=== PATIENT | female | born 1950 | race Caucasian/White ===

== ENCOUNTER 2016-12-22 14:26 | Emergency (ER) | payer MEDICAID ==
[2016-12-22] MEDS ORDERED: ONDANSETRON 4 MG/2 ML VIAL IVP ONE (14:47)
[2016-12-22] MEDS ORDERED: NS 500 ML IV ONE (14:47)
[2016-12-22] MEDS ORDERED: MECLIZINE HCL 25 MG TAB ONE (14:48)
[2016-12-22] MEDS ORDERED: IOPAMIDOL (ISOVUE 370) 100 ML BTL IV ONE (14:53)
--- NOTE | 2016-12-22 14:57 | EDPHY ---
H & P Time Seen by Provider: 12/22/16 14:36 HPI/ROS: HPI Headache, dizziness. 66-year-old female by private vehicle with her grandson. This patient reports that she developed dizziness which she describes as the room spinning onset about 3 hours prior to arrival. Symptoms worse with head movement. She also describes having a dull suboccipital/occipital headache. She describes this as gradual in in onset. She describes it as dull and mild to moderate at this time. She has had difficulty with balance secondary to her dizziness. She denies any focal weakness or loss of sensation in her extremities. She reports some intermittent blurry vision. She has a prior history of a brain malignancy with surgery which was performed at [facility] in [place]. ROS: Constitutional: No fever, no chills. As above. Eyes: No discharge. Above. ENT: No sore throat. No nasal congestion or rhinorrhea. Respiratory: No cough. No shortness of breath. Cardiac: No chest pain, no palpitations. Gastrointestinal: No abdominal pain, no vomiting, no diarrhea. Genitourinary: No hematuria. No dysuria or increased frequency with urination. Musculoskeletal: No back pain. No neck pain. No myalgias or arthralgias. Skin: No rashes. Neurological: As above. No focal weakness or altered sensation. Past medical history: Type 2 diabetes, hyperlipidemia, hypothyroidism, brain tumor with surgeries, thyroidectomy, left knee replacement. Social history: From [facility]. Does not speak Romansh. Denies smoking. No alcohol. Here with her grandson. Currently lives with family. Ambulates without a cane. Physical Exam: General Appearance: Alert, no distress. This patient is responding to questions appropriately and in full sentences. This patient appears well- hydrated and well-nourished. Eyes: Pupils equal and round no pallor or injection. No lid edema, erythema or injection. No nystagmus. No photophobia. Mild catch-up saccades on head impulse testing. Respiratory: There are no retractions, lungs are clear to auscultation with good air movement bilaterally. Cardiovascular: Regular rate and rhythm. No murmur. Gastrointestinal: Abdomen is soft and nontender, no masses, bowel sounds normal. No focal tenderness at McBurney's point. No Penn sign. Neurological: Motor sensory function is grossly intact. Cranial nerves are normal. Gait is baseline according to her son who witnessed her ambulate in the emergency department. Skin: Warm and dry, no rashes. Musculoskeletal: Neck is supple and nontender. No suboccipital tenderness on palpation. No tenderness over the lateral soft tissues of the neck. No pain on flexion of the neck. Extremities are symmetrical. All joints range without pain or impingement. Psychiatric: No agitation. No depression. Database: EKG: EKG time is 3:22 p.m.; EKG shows a narrow complex normal sinus rhythm with a ventricular rate of 79. The ID, QRS, QT intervals are within normal limits. There are no ST-T wave changes indicative of ischemic or injury pattern. No evidence of right heart strain. Interpreted by me. Imaging: CT angiogram of head and neck: Encephalomalacia noted from previous surgical procedure. No hemorrhage. No evidence of vertebral artery or carotid artery dissection. No significant acute findings. Results were discussed with staff radiologist. Procedures: Emergency department course: IV placed. Vital signs reviewed. She was placed on a monitoring coordinator. She was started on IV normal saline with 500 cc to be given over the next hour. She will be given 25 mg of oral meclizine. Given her history of intracranial mass as well as symptoms today we will obtain CT angiogram of her head neck. 3:25 p.m., patient re-evaluated. Repeat neurologic Assessment is nonfocal and as above. Her presentation, physical exam findings and emergency department workup are reassuring for a peripheral etiology of vertigo. Results of laboratory work, EKG and CT angiograms of the head neck discussed with her and her son. She is feeling better now in the emergency department. She is up and ambulatory with her baseline gait and without assistance. She and her grandson feel comfortable being discharged. I discussed follow-up with her primary care physician Dr. Anisha Corrales with the [facility]. She feels comfortable going home. Return to emergency department precautions were reviewed in detail. All of her questions were answered. She was discharged in good condition. Differential Diagnosis: The differential diagnosis on this patient includes but is not limited to benign positional vertigo, acute labyrinthitis. Carotid artery dissection, vertebral artery dissection, CVA, new or changing intracranial mass unlikely. This represents a partial list of diagnoses considered. These considerations are based on history, physical exam, past history, reassessment and diagnostic testing. Smoking Status: Never smoked Constitutional: Initial Vital Signs Temperature (C) 36.5 C 12/22/16 14:28 Heart Rate 90 12/22/16 14:28 Respiratory Rate 20 12/22/16 14:28 Blood Pressure 133/105 H 12/22/16 14:28 O2 Sat (%) 91 L 12/22/16 14:28 O2 Delivery Mode Room Air Allergies/Adverse Reactions: No Known Allergies Allergy (Verified 03/26/16 13:44) Home Medications: Medication Instructions Recorded Levothyroxine [Synthroid 150 mcg 150 mcg PO DAILY06 07/22/11 (RX)] Lisinopril [Zestril 10 mg (RX)] 10 mg PO DAILY PRN 07/22/11 Simvastatin [Zocor 20 mg (RX)] 20 mg PO DAILY18 12/14/11 metFORMIN HCL [Glucophage 500 mg 1,000 mg PO BIDMEAL 12/14/11 (RX)] Dm/P-Ephed/Acetaminoph/Doxylam 15 - 30 ml PO Q6 PRN 03/02/13 [Nyquil D Cold & Flu Liquid] Ibuprofen [Motrin 200 mg (OTC)] 400 mg PO Q6 PRN 03/02/13 Insulin Aspart [Novolog] 40 unit SC DAILY@18 03/02/13 Insulin Aspart [Novolog] 60 unit SC DAILY@03/02/13 Pantoprazole Sodium [Protonix 40mg 40 mg PO DAILY PRN 03/02/13 (RX)] clonazePAM [Klonopin (RX)] 1 mg PO HS 03/02/13 Cephalexin [Keflex] 500 mg PO TID #15 cap 03/26/16 Ondansetron Odt [Zofran Odt] 4 mg PO Q4PRN PRN #20 tab 03/26/16 Meclizine HCl [Antivert] 25 mg PO QID PRN #14 tablet 12/22/16 Medical Decision Making - Diagnostics Imaging Results: Imaging Impressions Head CTA 12/22/16 14:48 Impression: 1. Normal CT angiogram of the neck. There is some tortuosity of the proximal to mid ICA bilaterally. 2. Normal CT angiogram of the [place], as detailed above. Normal variation around the [place]. 3. Previous craniotomy on the right with underlying encephalomalacia and gliosis right posterior parietal to superior occipital lobe. Note: All calculations were performed using NASCET criteria. Findings discussed with Tameka Buchanan MD at 17:17 hour, 12/22/2016. Neck CTA 12/22/16 14:48 Impression: 1. Normal CT angiogram of the neck. There is some tortuosity of the proximal to mid ICA bilaterally. 2. Normal CT angiogram of the [place], as detailed above. Normal variation around the [place]. 3. Previous craniotomy on the right with underlying encephalomalacia and gliosis right posterior parietal to superior occipital lobe. Note: All calculations were performed using NASCET criteria. Findings discussed with Tameka Buchanan MD at 17:17 hour, 12/22/2016. Head CT 12/22/16 15:49 Impression: 1. No new intracranial abnormality seen. 2. Stable encephalomalacia and gliosis right posterior parietal to superior occipital lobe from previous surgery with overlying craniotomy. CT angiogram procedure has been ordered. - Data Points Laboratory Results: Laboratory Results 12/22/16 15:05 12/22/16 15:05 12/22/16 12/22/16 15:05 15:05 WBC 8.75 10^3/uL 10^3/uL (3.80-9.50) RBC 4.29 10^6/uL 10^6/uL (4.18-5.33) Hgb 13.1 g/dL g/dL (12.6-16.3) Hct 39.0 % % (38.0-47.0) MCV 90.9 fL fL (81.5-99.8) MCH 30.5 pg pg (27.9-34.1) MCHC 33.6 g/dL g/dL (32.4-36.7) RDW 14.2 % % (11.5-15.2) Plt Count 90 10^3/uL L 10^3/uL (150-400) MPV 13.0 fL H fL (8.7-11.7) Neut % (Auto) 55.1 % % (39.3-74.2) Lymph % (Auto) 31.0 % % (15.0-45.0) [place] % (Auto) 10.9 % % (4.5-13.0) Eos % (Auto) 2.2 % % (0.6-7.6) Baso % (Auto) 0.6 % % (0.3-1.7) Nucleat RBC Rel Count 0.0 % % (0.0-0.2) Absolute Neuts (auto) 4.83 10^3/uL 10^3/uL (1.70-6.50) Absolute Lymphs (auto) 2.71 10^3/uL 10^3/uL (1.00-3.00) Absolute Monos (auto) 0.95 10^3/uL H 10^3/uL (0.30-0.80) Absolute Eos (auto) 0.19 10^3/uL 10^3/uL (0.03-0.40) Absolute Basos (auto) 0.05 10^3/uL 10^3/uL (0.02-0.10) Absolute Nucleated RBC 0.00 10^3/uL 10^3/uL (0-0.01) Immature Gran % 0.2 % % (0.0-1.1) Immature Gran # 0.02 10^3/uL 10^3/uL (0.00-0.10) Sodium 138 mEq/L mEq/L (134-144) Potassium 4.1 mEq/L mEq/L (3.5-5.2) Chloride 104 mEq/L mEq/L (97-110) Carbon Dioxide 22 mEq/l mEq/l (22-31) Anion Gap 12 mEq/L mEq/L (8-16) BUN 15 mg/dL mg/dL (7-23) Creatinine 0.5 mg/dL L mg/dL (0.6-1.0) Estimated GFR > 60 Glucose 315 mg/dL H mg/dL (70-100) Calcium 10.2 mg/dL mg/dL (8.5-10.4) Medications Given: Discontinued Medications Sodium Chloride (Ns) 500 mls @ 0 mls/hr IV ONCE ONE; Wide Open PRN Reason: Protocol Stop: 12/22/16 14:48 Last Admin: 12/22/16 15:09 Dose: 500 mls Meclizine HCl (Meclizine Hcl) 25 mg PO EDNOW ONE Stop: 12/22/16 17:25 Last Admin: 12/22/16 17:30 Dose: 25 mg Ondansetron HCl (Zofran) 4 mg IVP EDNOW ONE Stop: 12/22/16 14:48 Last Admin: 12/22/16 15:14 Dose: 4 mg Departure - Departure Disposition: Home, Routine, Self-Care Clinical Impression: Peripheral vertigo Condition: Good Instructions: Dizziness (ED) Additional Instructions: Read and follow provided instructions. Follow-up with your primary care physician, Dr. Bao Corrales at the [facility], in 1-2 days for re-evaluation. Take medication as prescribed for vertigo. Return to the emergency department for worsening symptoms, worsening headache, worsening dizziness or lightheadedness, loss of sensation or weakness in your extremities or other serious concerns. Referrals: Anisha Corrales MD [Primary Care Provider] - As per Instructions Prescriptions: Meclizine HCl [Antivert] 25 mg PO QID PRN #14 tablet PRN Reason: Dizziness
--- NOTE | 2016-12-22 15:24 | CPEKG ---
Heart Rate: 79 RR Interval: 759 P-R Interval: 172 QRSD Interval: 88 QT Interval: 400 QTC Interval: 459 P [place]: 62 QRS [place]: -28 T Wave [place]: 66 EKG Severity - OTHERWISE NORMAL ECG - EKG Impression: SINUS RHYTHM EKG Impression: BORDERLINE LEFT AXIS DEVIATION Electronically Signed By: Tameka Buchanan 22-Dec-2016 15:58:20
[2016-12-22 15:28] LABS: % IMMATURE GRANULYOCYTES 0.2 % (0.0-1.1); ABSOLUTE IMMATURE GRANULOCYTES 0.02 10^3/uL (0.00-0.10); ADD DIFF? NO; ADD MORPH? NO; ADD SCAN? NO; ATYPICAL LYMPHOCYTE FLAG 20 (0-99); FRAGMENT RBC FLAG 0 (0-99); HEMOGLOBIN 13.1 g/dL (12.6-16.3); LEFT SHIFT FLG 0 (0-99); LIPEMIA HEMOLYSIS FLAG 80 (0-99); MEAN CELL HEMOGLOBIN 30.5 pg (27.9-34.1); MEAN CELL HEMOGLOBIN CONCENTR. 33.6 g/dL (32.4-36.7); MEAN CELL VOLUME 90.9 fL (81.5-99.8); PLATELET CLUMPS FLAG 10 (0-99); PLATELET COUNT 90 10^3/uL (150-400); RED BLOOD CELL COUNT 4.29 10^6/uL (4.18-5.33); RED CELL DISTRIBUTION WIDTH 14.2 % (11.5-15.2)
[2016-12-22 15:38] LABS: ANION GAP 12 mEq/L (8-16); CALCIUM 10.2 mg/dL (8.5-10.4); CARBON DIOXIDE 22 mEq/l (22-31); CHLORIDE 104 mEq/L (97-110); CREATININE 0.5 mg/dL (0.6-1.0); GLOMERULAR FILTRATION RATE > 60; GLUCOSE 315 mg/dL (70-100); POTASSIUM 4.1 mEq/L (3.5-5.2); SODIUM 138 mEq/L (134-144)
[2016-12-22] MEDS ORDERED: MECLIZINE HCL 25 MG TAB PO ONE (17:24)
[2016-12-22 18:05] VITALS: BP 118/63; PULSE 75; RESP 18; TEMP 98.4; O2SAT 94
== END 2016-12-22 18:00 | disposition home or self-care (01) ==
DX: H81.399 Other peripheral vertigo, unspecified ear (principal); E11.9 Type 2 diabetes mellitus without complications; E86.9 Volume depletion, unspecified; Z79.4 Long term (current) use of insulin; Z79.84 Long term (current) use of oral hypoglycemic drugs
CPT/HCPCS: 96374; J2405; Q9967

== ENCOUNTER 2017-07-18 13:47 | Emergency (ER) | payer MEDICAID ==
[2017-07-18 13:55] VITALS: TEMP 99.5
--- NOTE | 2017-07-18 15:36 | EDPHY ---
H & P Time Seen by Provider: 07/18/17 15:35 HPI/ROS: CHIEF COMPLAINT: Cough, fever Limitations: Bosnian speaking only, grandson as developmental services worker HISTORY OF PRESENT ILLNESS: 67-year-old female presents with cough and fever. Onset sore throat and runny nose 1 week ago. Associated with gradually increasing cough, now productive of yellowish phlegm. Associated with subjective fever. She also has right-sided chest pain with coughing only. No shortness of breath. No prior history of pneumonia. REVIEW OF SYSTEMS: Eyes: No visual changes Gastrointestinal: No nausea, no vomiting, no abdominal pain Genitourinary: No hematuria, no dysuria Musculoskeletal: No myalgias Skin: No rash Neurological: No headache, no numbness, no weakness Psychiatric: No depression Past Medical/Surgical History: Diabetes Hypertension Social History: Lives in own home Smoking Status: Never smoked Physical Exam: General Appearance: Alert, pleasant, nontoxic-appearing Eyes: Pupils equal and round, no conjunctival pallor or injection ENT, Mouth: Mucous membranes moist Neck: Normal inspection Respiratory: Rales at the right base Cardiovascular: Regular rate and rhythm Gastrointestinal: Abdomen is soft and nontender Neurological: A&O, nonfocal, normal gait Skin: Warm and dry Extremities: Normal inspection Psychiatric: Mood and affect normal Constitutional: Initial Vital Signs Temperature (C) 37.5 C 07/18/17 13:52 Heart Rate 85 07/18/17 13:52 Respiratory Rate 17 07/18/17 13:52 Blood Pressure 146/58 H 07/18/17 13:52 O2 Sat (%) 92 07/18/17 13:52 O2 Delivery Mode Room Air Allergies/Adverse Reactions: No Known Allergies Allergy (Verified 07/18/17 13:51) Home Medications: Medication Instructions Recorded Levothyroxine [Synthroid 150 mcg 150 mcg PO DAILY06 07/22/11 (RX)] Lisinopril [Zestril 10 mg (RX)] 10 mg PO DAILY PRN 07/22/11 Simvastatin [Zocor 20 mg (RX)] 20 mg PO DAILY18 12/14/11 metFORMIN HCL [Glucophage 500 mg 1,000 mg PO BIDMEAL 12/14/11 (RX)] Dm/P-Ephed/Acetaminoph/Doxylam 15 - 30 ml PO Q6 PRN 03/02/13 [Nyquil D Cold & Flu Liquid] Ibuprofen [Motrin 200 mg (OTC)] 400 mg PO Q6 PRN 03/02/13 Insulin Aspart [Novolog] 40 unit SC DAILY@18 03/02/13 Insulin Aspart [Novolog] 60 unit SC DAILY@08 03/02/13 Pantoprazole Sodium [Protonix 40mg 40 mg PO DAILY PRN 03/02/13 (RX)] clonazePAM [Klonopin (RX)] 1 mg PO HS 03/02/13 Ondansetron Odt [Zofran Odt] 4 mg PO Q4PRN PRN #20 tab 03/26/16 Meclizine HCl [Antivert] 25 mg PO QID PRN #14 tablet 12/22/16 Doxycycline Hyclate 100 mg PO BID #20 tablet 07/18/17 Hydrocodone/APAP 5/325 [[place] 1 - 2 tab PO Q4H PRN #10 tab 07/18/17 5/325] Medical Decision Making - Diagnostics Imaging Results: Chest x-ray reveals right lower lobe atelectasis versus infiltrate Imaging: I viewed and interpreted images myself ED Course/Re-evaluation: This patient presents with upper respiratory symptoms, rales at the right base and a chest x-ray reveals atelectasis versus infiltrate at the right base. Will treat with doxycycline for possible early pneumonia. She is clinically stable, without hypoxia or vomiting. Follow-up with primary care physician in 2 days. Differential Diagnosis: Differential diagnosis includes but is not limited to pneumonia, otitis media, peritonsillar abscess, retropharyngeal abscess, meningitis. - Data Points Medications Given: Discontinued Medications Acetaminophen (Tylenol) 650 mg PO EDNOW ONE Stop: 07/18/17 15:41 Last Admin: 07/18/17 16:14 Dose: 650 mg Departure - Departure Disposition: Home, Routine, Self-Care Clinical Impression: Pneumonia Condition: Good Instructions: Bacterial Pneumonia (ED) Additional Instructions: Take Tylenol 650 mg every 4 hr as needed for fever and pain. [place] 1 tablet orally at bedtime for fever and cough. Take the antibiotics as prescribed. Return for worsening symptoms, shortness of breath or any concerns. Follow-up with her primary care physician in 2 days for recheck. Referrals: Anisha Corrales MD [Primary Care Provider] - As per Instructions Prescriptions: Doxycycline Hyclate 100 mg PO BID #20 tablet Hydrocodone/APAP 5/325 [[place] 5/325] 1 - 2 tab PO Q4H PRN #10 tab PRN Reason: Pain, Moderate
[2017-07-18] MEDS ORDERED: ACETAMINOPHEN 325 MG TAB PO ONE (15:40)
[2017-07-18 16:17] VITALS: BP 129/57; PULSE 81; RESP 16; O2SAT 93
== END 2017-07-18 16:30 | disposition home or self-care (01) ==
DX: J18.9 Pneumonia, unspecified organism (principal); I10 Essential (primary) hypertension; E11.9 Type 2 diabetes mellitus without complications; Z79.4 Long term (current) use of insulin

== ENCOUNTER → 2017-07-31 | Outpatient (CLI) | payer MEDICAID | LOC: FIMAGING 09:06 | PROVIDERS: ATTEND Family Medicine | DX: J42 Unspecified chronic bronchitis (principal); J98.11 Atelectasis ==

== ENCOUNTER → 2018-05-07 | Outpatient (CLI) | payer MEDICAID | LOC: FIMAGING 14:10 | PROVIDERS: ATTEND Family Medicine | DX: Z12.31 Encounter for screening mammogram for malignant neoplasm of breast (principal); R92.8 Other abnormal and inconclusive findings on diagnostic imaging of breast ==

== ENCOUNTER → 2018-05-28 | Outpatient (CLI) | payer MEDICAID | LOC: FIMAGING 14:03 | PROVIDERS: ATTEND Family Medicine | DX: N63.21 Unspecified lump in the left breast, upper outer quadrant (principal) ==

== ENCOUNTER → 2018-06-17 | Outpatient (CLI) | payer MEDICAID ==
[~2018-06-17] MED LIST: BUPIVACAINE 0.5% 30 ML SDV ONE; LIDOCAINE 1% 300 MG/30 ML SDV ONE
== END ==
LOC: FIMAGING 07:29
PROVIDERS: ATTEND Family Medicine
PROC: 0HBU3ZX Excision of Left Breast, Percutaneous Approach, Diagnostic (ICD-10-PCS; principal; 2018-06-17)
DX: N63.21 Unspecified lump in the left breast, upper outer quadrant (principal)

== ENCOUNTER 2018-08-02 06:21 | Day surgery (SDC) | payer MEDICAID ==
[2018-08-02] MEDS ORDERED: ceFAZolin 2 GM/DEXTROSE 100 ML IV ONE (06:42)
[2018-08-02] MEDS ORDERED: LR 1,000 ML IV ONE (06:58)
[2018-08-02] MEDS ORDERED: LIDOCAINE 1% 300 MG/30 ML SDV ONE (07:44)
--- NOTE | 2018-08-02 09:15 | PDHPUP ---
History & Physical Update H&P update statement: This history and physical update is based on an assessment of the patient which was completed after admission or registration (within 24 hours), but prior to the surgery/procedure. H&P update: H&P reviewed & patient examined, no change in patient's condition since H&P completed
[2018-08-02] MEDS ORDERED: BUPIVACAINE 0.5% 30 ML SDV ONE (09:34)
--- NOTE | 2018-08-02 09:39 | PDANEPAE ---
ANE History of Present Illness left lumpectomy ANE Past Medical History - Cardiovascular History Hx Hypertension: Yes Hx Arrhythmias: No Hx Chest Pain: No Hx Coronary Artery / Peripheral Vascular Disease: No Hx CHF / Valvular Disease: No Hx Palpitations: No Cardiovascular History Comment: NO CP OR SOB. HYPERLIPIDEMIA - Pulmonary History Hx COPD: No Hx Asthma/Reactive Airway Disease: No Hx Recent Upper Respiratory Infection: No Hx Oxygen in Use at Home: No Hx Sleep Apnea: No Sleep Apnea Screening Result - Last Documented: Positive Pulmonary History Comment: PE 2006 - TXD W/ANTICOAG THERAPY - NO RECURRENCE. SINUS REBECA - Neurologic History Hx Cerebrovascular Accident: No Hx Seizures: No Hx Dementia: No - Endocrine History Hx Diabetes: Yes Endocrine History Comment: DMII. THYROIDECTOMY - Renal History Hx Renal Disorders: No Renal History Comment: OCCAS UTI - Liver History Hx Hepatic Disorders: No - Neurological & Psychiatric Hx Hx Neurological and Psychiatric Disorders: Yes Neurological / Psychiatric History Comment: ANXIETY - Cancer History Hx Cancer: Yes Cancer History Comment: THYROID - Congenital Disorder History Hx Congenital Disorders: No - GI History Hx Gastrointestinal Disorders: Yes Gastrointestinal History Comment: ACID REFLUX - Other Health History Other Health History: OCCAS EDEMA SANTI ANKLES - Surgical History Prior Surgeries: L TKA. L KNEE SCOPE. MENINGIOMA INTRACRANIAL - RESECTED X2. THYROIDECTOMY ANE Review of Systems Review of systems is: negative Review of Systems: - Exercise capacity METS (RN): 4 METS ANE Patient History - Allergies Allergies/Adverse Reactions: No Known Allergies Allergy (Verified 07/18/17 13:51) - Home Medications Home medications: home medication list seen and reviewed Home Medications: Levothyroxine [Synthroid 150 mcg (RX)] 150 mcg PO DAILY06 07/22/11 [Last Taken 08/02/18] Lisinopril [Zestril 10 mg (RX)] 10 mg PO DAILY PRN 07/22/11 [Last Taken 08/01/18 ] metFORMIN HCL [Glucophage 500 mg (RX)] 1,000 mg PO BIDMEAL 12/14/11 [Last Taken 08/01/18] Ibuprofen [Motrin 200 mg (OTC)] 400 mg PO Q6 PRN 03/02/13 [Last Taken 07/23/18] Insulin Aspart [Novolog] 40 unit SC DAILY@03/02/13 [Last Taken 08/01/18] Insulin Aspart [Novolog] 60 unit SC DAILY@03/02/13 [Last Taken 08/01/18] Pantoprazole Sodium [Protonix 40mg (RX)] 40 mg PO DAILY PRN 03/02/13 [Last Taken 08/02/18] clonazePAM [Klonopin (RX)] 1 mg PO HS 03/02/13 [Last Taken 08/01/18] Atorvastatin Calcium 07/22/18 [Last Taken 08/01/18] Furosemide 07/22/18 [Last Taken 08/01/18] Metoprolol Succinate 07/22/18 [Last Taken Unknown] - NPO status NPO Since - Liquids (Date): 08/02/18 NPO Since - Liquids (Time): 05:30 NPO Since - Solids (Date): 08/01/18 NPO Since - Solids (Time): 21:00 - Smoking Hx Smoking Status: Never smoked ANE Labs/Vital Signs - Vital Signs Blood Pressure: 118/56 Heart Rate: 78 Respiratory Rate: 18 O2 Sat (%): 94 Height: 162.56 cm Weight: 99.79 kg ANE Physical Exam - Airway Neck exam: FROM Mouth exam: dentures - Pulmonary Pulmonary: no respiratory distress - Cardiovascular Cardiovascular: regular rate and rhythym - ASA Status ASA Status: III ANE Anesthesia Plan Anesthesia Plan: GA w LMA
[2018-08-02] MEDS ORDERED: LIDOCAINE 2% 5 ML SDV ONE (10:15)
[2018-08-02] MEDS ORDERED: PROPOFOL 200 MG/20 ML VIAL ONE ×2 (10:15→11:01)
[2018-08-02] MEDS ORDERED: fentaNYL 100 MCG/2 ML INJ ONE (10:15)
[2018-08-02] MEDS ORDERED: ONDANSETRON 4 MG/2 ML VIAL ONE (10:18)
[2018-08-02] MEDS ORDERED: KETOROLAC 30 MG/1 ML SDV ONE (10:18)
[2018-08-02] MEDS ORDERED: HYDROmorphONE/DILAUDID 1 MG/ML INJ IVP PRN (10:37)
[2018-08-02] MEDS ORDERED: NALOXONE HCL 0.4 MG/ML INJ IVP PRN (10:37)
[2018-08-02] MEDS ORDERED: oxyCODONE IR 5 MG TAB PO PRN (10:37)
[2018-08-02] MEDS ORDERED: ACETAMINOPHEN 500 MG TAB PO PRN (10:37)
[2018-08-02] MEDS ORDERED: HYDROCODONE/APAP 5/325 TAB PO PRN (10:37)
[2018-08-02] MEDS ORDERED: fentaNYL 100 MCG/2 ML INJ IVP PRN (10:37)
[2018-08-02] MEDS ORDERED: PROMETHAZINE HCL 25 MG/ML INJ IVP PRN (10:37)
[2018-08-02] MEDS ORDERED: ALBUTEROL 3 ML DEYVIAL IH PRN (10:37)
[2018-08-02] MEDS ORDERED: LR 500 ML IV PRN (10:37)
[2018-08-02] MEDS ORDERED: ONDANSETRON 4 MG/2 ML VIAL IVP PRN (10:37)
--- NOTE | 2018-08-02 10:37 | POSTANESTH ---
Post Anesthetic Evaluation Cardiovascular Status: Normal, Stable Respiratory Status: Normal, Stable Level of Consciousness/Mental Status: Can Participate in Eval, Mildly Sleepy, Arousable Pain Control: Adequate, Prn Tx Ordered Nausea/Vomiting Control: Adequate, Prn Tx Ordered Complications Possibly Related to Anesthesia: None Noted
--- NOTE | 2018-08-02 11:08 | POSTOPPROG ---
Post Op Note Date of Operation: 08/02/18 Surgeon: Samantha Billings Anesthesiologist: talia Anesthesia: GET(General Endotracheal) Pre-op Diagnosis: l breast cancer Post-op Diagnosis: L breast cancer Indication: 68 yo with L breast cancer Procedure: L needle loc lumpectomy L SLN Findings: clip in specimen Inf/Abcess present in the surg proc area at time of surgery?: No Depth: Superfical (Skin SQ) EBL: Minimal Specimen(s): lumpectomy. margins, sln
[2018-08-02] MEDS ORDERED: HYDROCODONE/APAP 5/325 TAB ONE (12:14)
[2018-08-02 13:45] VITALS: BP 87/47
--- NOTE | 2018-08-03 07:19 | GOP ---
[f rep st] OPERATIVE REPORT DATE OF OPERATION: 08/02/2018 SURGEON: Samantha Billings MD ANESTHESIA: General. ANESTHESIOLOGIST: Giuliano Pathak MD. 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 PROCEDURE PERFORMED: Left breast needle localized lumpectomy with left sentinel lymph node. FINDINGS: Clip within the specimen. SPECIMENS: Left breast lumpectomy, additional margins, left sentinel lymph node. ESTIMATED BLOOD LOSS: 10 cc. INDICATIONS: The patient is a 68-year-old with invasive ductal carcinoma. DESCRIPTION OF PROCEDURE: The patient was brought into the operating room, placed supine on the table, and general anesthesia was administered. Her left breast was prepped and draped in the usual sterile fashion. I infiltrated all sites with 0.5% Marcaine prior to making incisions. I made ellipse around the wire and created superior and inferior skin flaps. I dissected down beyond the level of the wire. I marked this green anterior, red superior, yellow lateral, blue inferior, orange medial, black posterior. I submitted this to Radiology and the clip and wire contained within the specimen. I took an additional superior margin inked red, medial yellow, inferior blue, lateral orange, posterior black. Hemostasis achieved. Clips placed in the cavity. The deep layer closed with 3-0 Vicryl, skin closed with 3-0 Vicryl followed by 4-0 Monocryl. I made an incision beneath the hair-bearing portion in her axilla. I dissected down through the skin, subcutaneous space. I entered into the axillary space. I used a gamma probe to identify the sentinel lymph node; it measured over 2000. I excised this. Hemostasis achieved in the axilla. The background was quiet. Esther was placed in the axilla. The wound was closed with 3-0 Vicryl followed by 4-0 Monocryl. Mastisol, Steri-Strips, sterile dressings applied. She was awakened in the operating room, extubated, transferred to PACU in stable condition. /[id number]/MODL MTDD
[2018-08-22] MEDS ORDERED: fentaNYL 100 MCG/2 ML INJ ONE (02:43)
[2018-08-22] MEDS ORDERED: PROPOFOL 200 MG/20 ML VIAL ONE (02:43)
[2018-08-22] MEDS ORDERED: LIDOCAINE 2% 5 ML SDV ONE (02:46)
== END 2018-08-02 13:39 | disposition home or self-care (01) ==
LOC: FIMAGING 06:21
PROVIDERS: ATTEND Surgery
PROC: 3E0W3KZ Introduction of Other Diagnostic Substance into Lymphatics, Percutaneous Approach (ICD-10-PCS; principal; 2018-08-02 10:00)
PROC: 07B60ZX Excision of Left Axillary Lymphatic, Open Approach, Diagnostic (ICD-10-PCS; principal; 2018-08-02 10:00)
PROC: BH01ZZZ Plain Radiography of Left Breast (ICD-10-PCS; principal; 2018-08-02 10:00)
PROC: 0HBU0ZZ Excision of Left Breast, Open Approach (ICD-10-PCS; principal; 2018-08-02 10:00)
DX: C50.912 Malignant neoplasm of unspecified site of left female breast (principal); E78.5 Hyperlipidemia, unspecified; E11.9 Type 2 diabetes mellitus without complications; E89.0 Postprocedural hypothyroidism; Z86.711 Personal history of pulmonary embolism; Z96.652 Presence of left artificial knee joint; Z86.011 Personal history of benign neoplasm of the brain
CPT/HCPCS: 19281; 19301; 38500; 76098; 78195; A9520; J0690; J1885; J2405; J2704; J3010